=== PATIENT | female | born 1940 | race African-American/Black ===

== ENCOUNTER → 2016-08-06 | Outpatient (CLI) | payer MEDICARE ==
--- NOTE | 2016-08-06 12:06 | REPMRS ---
Patient History The patient states she has not had a clinical breast exam in over a year. Patient is postmenopausal. No known family history of cancer. Benign excisional biopsy of the left breast, 1960. Digital Woman Screen Mammo: August 06, 2016 - Exam #: [id number] Bilateral CC and MLO view(s) were taken. Technologist: Caitlyn Serrano Technologist Prior study comparison: April 13, 2015, digital woman screen mammo performed at [facility]. January 17, 2014, bilateral screening mammogram, performed at [facility]. November 23, 2012, digital bilateral screening mammo, performed at [facility]. FINDINGS: There are scattered fibroglandular densities. There has been no change in the appearance of the mammogram from the prior studies. There is a mild amount of scattered fibroglandular density which is fairly symmetric. There is no interval development of dominant mass, architectural distortion, or clustered microcalcification suggestive of malignancy. ASSESSMENT: BI-RADS/ACR category 1 mammogram. Negative. Recommendation Routine screening mammogram in 1 year (for women over age 40). This mammogram was interpreted with the aid of an FDA-approved computer-aided dectection system. Electronically Signed By: Boris Haro MD 08/06/16 [id number]
--- NOTE | 2016-08-08 11:06 | DEXA ---
AP SPINE L1 - L4 1.322 1.0 1.6 LT FEMUR TOTAL 0.996 -0.1 0.5 RT FEMUR TOTAL 0.993 -0.1 0.4 TOTAL BODY TOTAL OTHER DUAL FEMUR FRAX* ASSESSMENT Risk factors: None. 10 year probability of fracture Major osteoporotic fracture 11.0 % Hip fracture 2.0 % COMMENTS: Normal bone densitometry of the spine. Normal bone densitometry of the left hip. There is low bone density of the right hip. FOLLOW-UP: Recommendation for the next bone density exam: 2 years. DARIUS
== END ==
LOC: M WHC 10:27
PROVIDERS: ATTEND Nurse Practitioner Family
DX: Z13.820 Encounter for screening for osteoporosis (principal); Z12.31 Encounter for screening mammogram for malignant neoplasm of breast; M25.851 Other specified joint disorders, right hip; M81.0 Age-related osteoporosis without current pathological fracture
CPT/HCPCS: 77080; G0202

== ENCOUNTER → 2016-09-03 | Outpatient (REF) | payer MEDICARE ==
[2016-09-03 12:31] LABS: ALBUMIN 3.5 GM/DL (3.2-5.2); ALBUMIN/GLOBULIN RATIO 0.92 (1.00-1.93); ALKALINE PHOSPHATASE 59 U/L (45-117); ALT/SGPT 21 U/L (12-78); ANION GAP 8 MEQ/L (8-16); AST/SGOT 17 U/L (15-37); BILIRUBIN,TOTAL 0.3 MG/DL (0.2-1.0); BLOOD UREA NITROGEN 14 MG/DL (7-18); CALCIUM LEVEL 8.8 MG/DL (8.8-10.2); CARBON DIOXIDE LEVEL 30 MEQ/L (21-32); CHLORIDE LEVEL 98 MEQ/L (98-107); CREATININE FOR GFR 0.87 MG/DL (0.55-1.02); GLOMERULAR FILTRATION RATE > 60.0 (>39); GLUCOSE, FASTING 95 MG/DL (83-110); POTASSIUM SERUM 3.9 MEQ/L (3.5-5.1); SODIUM LEVEL 136 MEQ/L (136-145); TOTAL PROTEIN 7.3 GM/DL (6.4-8.2)
== END ==
LOC: M SFHCPLAZ 08:12
PROVIDERS: ATTEND Nurse Practitioner Family
DX: I10 Essential (primary) hypertension (principal); E78.2 Mixed hyperlipidemia; K21.9 Gastro-esophageal reflux disease without esophagitis; E55.9 Vitamin D deficiency, unspecified; Z86.73 Personal history of transient ischemic attack (TIA), and cerebral infarction without residual deficits

== ENCOUNTER → 2016-09-24 | Outpatient (REF) | payer MEDICARE ==
[2016-09-24 14:05] LABS: IMMUNOGLOBULIN A 78.4 MG/DL (70-400); IMMUNOGLOBULIN G 1530 MG/DL (681-1648); TOTAL PROTEIN 7.2 GM/DL (6.4-8.2)
[2016-09-24 15:09] LABS: IMMUNOGLOBULIN M 10.7 MG/DL (40-230)
[2016-09-25 12:43] LABS: ALBUMIN 4.08 GM/DL (3.29-5.55); ALBUMIN % 56.6 % (55.8-66.1); GAMMA GLOBULIN % 19.9 % (11.1-18.8)
[2016-09-27 00:07] LABS: FREE KAPPA LIGHT CHAINS SERUM 12.38 mg/L (3.30-19.40); FREE LAMBDA LIGHT CHAINS SERUM 11.07 mg/L (5.71-26.30); KAPPA/LAMBDA RATIO SERUM 1.12 (0.26-1.65)
== END ==
LOC: M LAB REF 12:54
PROVIDERS: ATTEND Internal Medicine Medical Oncology
DX: D47.2 Monoclonal gammopathy (principal)

== ENCOUNTER → 2016-10-08 | Outpatient (REF) | payer MEDICARE ==
[2016-10-08 13:35] LABS: PERCENT SATURATION 18.4 % (13.2-37.4)
== END ==
LOC: M LAB REF 12:35
PROVIDERS: ATTEND Internal Medicine Medical Oncology
DX: D47.2 Monoclonal gammopathy (principal); D64.9 Anemia, unspecified

== ENCOUNTER → 2017-04-15 | Outpatient (REF) | payer MEDICARE ==
[2017-04-15 14:04] LABS: IMMUNOGLOBULIN A 78.9 MG/DL (70-400); IMMUNOGLOBULIN G 1680 MG/DL (681-1648); TOTAL PROTEIN 7.8 GM/DL (6.4-8.2)
[2017-04-15 14:25] LABS: IMMUNOGLOBULIN M 14.3 MG/DL (40-230)
[2017-04-16 10:30] LABS: ALBUMIN 4.36 GM/DL (3.29-5.55); ALBUMIN % 55.9 % (55.8-66.1); GAMMA GLOBULIN % 19.7 % (11.1-18.8)
[2017-04-17 00:10] LABS: FREE KAPPA LIGHT CHAINS SERUM 11.2 mg/L (3.3-19.4); KAPPA/LAMBDA RATIO SERUM 1.12 (0.26-1.65)
== END ==
LOC: M LAB REF 12:07
PROVIDERS: ATTEND Internal Medicine Medical Oncology
DX: D47.2 Monoclonal gammopathy (principal)

== ENCOUNTER → 2017-05-13 | Outpatient (REF) | payer MEDICARE ==
[2017-05-13 12:13] LABS: ANION GAP 6 MEQ/L (8-16); BLOOD UREA NITROGEN 15 MG/DL (7-18); CALCIUM LEVEL 9.5 MG/DL (8.8-10.2); CARBON DIOXIDE LEVEL 35 MEQ/L (21-32); CHLORIDE LEVEL 96 MEQ/L (98-107); GLOMERULAR FILTRATION RATE > 60.0 (>39); GLUCOSE, FASTING 83 MG/DL (83-110); POTASSIUM SERUM 3.5 MEQ/L (3.5-5.1); SODIUM LEVEL 137 MEQ/L (136-145)
== END ==
LOC: M SFHCPLAZ 09:33
DX: E87.6 Hypokalemia (principal)
CPT/HCPCS: 80048

== ENCOUNTER → 2017-07-22 | Outpatient (REF) | payer MEDICARE ==
[2017-07-22 14:19] LABS: FERRITIN 60 NG/ML (8-252); IMMUNOGLOBULIN A 77.7 MG/DL (70-400); IMMUNOGLOBULIN G 1650 MG/DL (681-1648); IRON (FE) 61 UG/DL (50-170); PERCENT SATURATION 19.3 % (13.2-45.0); TOTAL IRON BINDING CAPACITY 316 UG/DL (250-450)
[2017-07-23 08:52] LABS: ALBUMIN 4.45 GM/DL (3.29-5.55); ALBUMIN % 55.6 % (55.8-66.1); ALPHA-1-GLOBULIN % 5.1 % (2.9-4.9); ALPHA-1-GLOBULINS 0.41 GM/DL (0.17-0.41); ALPHA-2-GLOBULINS 0.84 GM/DL (0.42-0.99); ALPHA-2-GLOBULINS % 10.5 % (7.1-11.8); BETA-1-GLOBULINS 0.41 GM/DL (0.28-0.60); BETA-1-GLOBULINS % 5.1 % (4.7-7.2); BETA-2-GLOBULINS 0.34 GM/DL (0.19-0.55); BETA-2-GLOBULINS % 4.2 % (3.2-6.5); GAMMA GLOBULIN % 19.5 % (11.1-18.8); GAMMA GLOBULINS 1.56 GM/DL (0.65-1.58)
[2017-07-24 00:06] LABS: FREE LAMBDA LIGHT CHAINS SERUM 9.5 mg/L (5.7-26.3); KAPPA/LAMBDA RATIO SERUM 0.63 (0.26-1.65)
== END ==
LOC: M LAB REF 13:24
DX: D47.2 Monoclonal gammopathy (principal)
CPT/HCPCS: 83550

== ENCOUNTER → 2017-10-21 | Outpatient (CLI) | payer MEDICARE | LOC: M WHC 08:46 | DX: Z12.31 Encounter for screening mammogram for malignant neoplasm of breast (principal); Z78.0 Asymptomatic menopausal state; Z92.89 Personal history of other medical treatment; I10 Essential (primary) hypertension | CPT/HCPCS: 80053 ==

== ENCOUNTER → 2017-10-21 | Outpatient (REF) | payer MEDICARE ==
[2017-10-21 11:56] LABS: ALBUMIN 3.7 GM/DL (3.2-5.2); ALKALINE PHOSPHATASE 65 U/L (45-117); ALT/SGPT 20 U/L (12-78); ANION GAP 11 MEQ/L (8-16); AST/SGOT 13 U/L (7-37); BILIRUBIN,TOTAL 0.5 MG/DL (0.2-1.0); BLOOD UREA NITROGEN 10 MG/DL (7-18); CALCIUM LEVEL 9.6 MG/DL (8.8-10.2); CARBON DIOXIDE LEVEL 31 MEQ/L (21-32); CHLORIDE LEVEL 96 MEQ/L (98-107); CREATININE FOR GFR 0.72 MG/DL (0.55-1.30); GLOMERULAR FILTRATION RATE > 60.0 (>39); GLUCOSE, FASTING 79 MG/DL (70-100); POTASSIUM SERUM 3.1 MEQ/L (3.5-5.1); SODIUM LEVEL 138 MEQ/L (136-145); TOTAL PROTEIN 7.8 GM/DL (6.4-8.2)
== END ==
LOC: M SFHCPLAZ 08:17
DX: I10 Essential (primary) hypertension (principal)

== ENCOUNTER → 2017-10-29 | Outpatient (REF) | payer MEDICARE ==
[2017-10-29 12:20] LABS: POTASSIUM SERUM 3.8 MEQ/L (3.5-5.1)
== END ==
LOC: M SFHCPLAZ 10:11
DX: E87.6 Hypokalemia (principal)
CPT/HCPCS: 84132

== ENCOUNTER → 2018-01-27 | Outpatient (REF) | payer MEDICARE ==
[2018-01-27 16:35] LABS: IMMUNOGLOBULIN G 1610 MG/DL (681-1648); IMMUNOGLOBULIN M 19 MG/DL (40-230); TOTAL PROTEIN 7.7 GM/DL (6.4-8.2)
[2018-01-28 11:22] LABS: ALBUMIN 4.31 GM/DL (3.29-5.55); ALPHA-1-GLOBULIN % 4.9 % (2.9-4.9); ALPHA-1-GLOBULINS 0.38 GM/DL (0.17-0.41); ALPHA-2-GLOBULINS 0.77 GM/DL (0.42-0.99); BETA-1-GLOBULINS 0.39 GM/DL (0.28-0.60); BETA-2-GLOBULINS 0.32 GM/DL (0.19-0.55); BETA-2-GLOBULINS % 4.1 % (3.2-6.5); GAMMA GLOBULINS 1.54 GM/DL (0.65-1.58)
[2018-01-29 00:07] LABS: FREE KAPPA LIGHT CHAINS SERUM 10.3 mg/L (3.3-19.4); KAPPA/LAMBDA RATIO SERUM 1.29 (0.26-1.65)
== END ==
LOC: M LAB REF 13:44
DX: D47.2 Monoclonal gammopathy (principal)
CPT/HCPCS: 84165

== ENCOUNTER → 2018-03-23 | Outpatient (CLI) | payer MEDICARE | LOC: M RAD 13:13 | DX: M25.552 Pain in left hip (principal) | CPT/HCPCS: 73502 ==

== ENCOUNTER → 2018-09-08 | Outpatient (REF) | payer MEDICARE ==
[~2018-09-08] MED LIST: HYDR25TAB PO; METO50TA7 PO; PANT-23 PO; PLAV1TAB2 PO; SIMV20TA2 PO
[2018-09-08 10:57] LABS: ALT/SGPT 17 U/L (12-78); BILIRUBIN,TOTAL 0.4 MG/DL (0.2-1.0); BLOOD UREA NITROGEN 11 MG/DL (7-18); CALCIUM LEVEL 9.6 MG/DL (8.8-10.2); CARBON DIOXIDE LEVEL 33 MEQ/L (21-32); CHLORIDE LEVEL 96 MEQ/L (98-107); CHOLESTEROL LEVEL 212 MG/DL (<200); CHOLESTEROL RISK RATIO 2.329 (<5); CREATININE FOR GFR 0.72 MG/DL (0.55-1.30); FREE T4 0.88 NG/DL (0.76-1.46); GLOMERULAR FILTRATION RATE > 60.0 (>32); GLUCOSE, FASTING 82 MG/DL (70-100); HDL CHOLESTEROL 91 MG/DL (>40); LDL CHOLESTEROL 101 MG/DL (<100); NON-HDL-C 121 MG/DL; POTASSIUM SERUM 3.6 MEQ/L (3.5-5.1); SODIUM LEVEL 134 MEQ/L (136-145); TOTAL PROTEIN 7.9 GM/DL (6.4-8.2); TRIGLYCERIDES LEVEL 99 MG/DL (<150)
[2018-09-08 10:58] LABS: TOTAL 25(OH) VITAMIN D 48.7 NG/ML (30.0-100.0)
== END ==
LOC: M SFHCPLAZ 08:18
PROVIDERS: ATTEND Nurse Practitioner Family
DX: I10 Essential (primary) hypertension (principal); E04.9 Nontoxic goiter, unspecified; E78.2 Mixed hyperlipidemia; E55.9 Vitamin D deficiency, unspecified

== ENCOUNTER → 2018-09-15 | Outpatient (REF) | payer MEDICARE ==
[2018-09-15 13:55] LABS: BLOOD UREA NITROGEN 13 MG/DL (7-18); CALCIUM LEVEL 9.2 MG/DL (8.8-10.2); CARBON DIOXIDE LEVEL 33 MEQ/L (21-32); CHLORIDE LEVEL 98 MEQ/L (98-107); GLOMERULAR FILTRATION RATE > 60.0 (>32); GLUCOSE, FASTING 73 MG/DL (70-100); POTASSIUM SERUM 3.5 MEQ/L (3.5-5.1); SODIUM LEVEL 135 MEQ/L (136-145)
== END ==
LOC: M SFHCPLAZ 11:10
PROVIDERS: ATTEND Family Medicine
DX: E87.1 Hypo-osmolality and hyponatremia (principal)
CPT/HCPCS: 36415; 80048; G0463

== ENCOUNTER 2019-04-05 10:56 | Emergency (ER) | payer MEDICARE ==
[~2019-04-05] VITALS: Ht 167.6 cm; Wt 82.5 kg
[~2019-04-05 10:56] MED LIST changes: -SIMV20TA2 PO; +SIMV20TA22 PO
[2019-04-05] MEDS ORDERED: K-TA10TA2 PO (11:23)
[2019-04-05] MEDS ORDERED: CLAR10CA3 PO (11:23)
[2019-04-05] MEDS ORDERED: CHOL100029 PO (11:23)
[2019-04-05] MEDS ORDERED: NS 1,000 ML IV SCH (12:16)
--- NOTE | 2019-04-05 12:34 | REP ---
Clinical: Altered mental status . Comparison: None . Findings: The ventricles, sulci, and cisterns are normal in position and appearance. Espitia-white differentiation is maintained. No acute intracranial hemorrhage, mass/mass effect, pathology or trauma/injury. No evidence for acute infarction. No extra-axial fluid collection. Calvarium is intact. Paranasal sinuses and mastoid air cells are clear. Impression: Normal noncontrast head CT. No evidence for acute intracranial pathology or trauma/injury. Electronically Signed by Saad Chandler MD 04/05/2019 12:26 P
--- NOTE | 2019-04-05 12:37 | REP ---
Clinical: Altered mental status . Comparison: None . Findings: The mediastinum and cardiac silhouette are stable and within normal limits for portable technique. The lung billingsley demonstrate chronic-appearing changes without acute consolidation, effusion, or pneumothorax. Skeletal structures are intact. Impression: Chronic-appearing changes. No focal consolidation or effusion. Electronically Signed by Saad Chandler MD 04/05/2019 12:29 P
[2019-04-05 13:07] LABS: BASO % 0.5 % (0.0-1.0); EOS # 0.1 10^3/uL (0.0-0.5); EOS % 1.3 % (0.0-3.0); HEMATOCRIT 39.8 % (36.0-47.0); HEMOGLOBIN 12.6 g/dl (12.0-15.5); LYMPH # 1.3 10^3/uL (1.5-5.0); LYMPH % 35.2 % (24.0-44.0); MEAN CORPUSCULAR HEMOGLOBIN 28.1 pg (27.0-33.0); MEAN CORPUSCULAR HGB CONC 31.7 g/dl (32.0-36.5); MEAN CORPUSCULAR VOLUME 88.6 fl (80.0-96.0); MONO # 0.3 10^3/uL (0.0-0.8); MONO % 7.9 % (0.0-5.0); NEUTROPHILS # 2.1 10^3/uL (1.5-8.5); NEUTROPHILS % 54.8 % (36.0-66.0); PLATELET COUNT, AUTOMATED 195 10^3/uL (150-450); RED BLOOD COUNT 4.49 10^6/uL (4.00-5.40); WHITE BLOOD COUNT 3.8 10^3/uL (4.0-10.0)
[2019-04-05 13:51] LABS: ACETAMINOPHEN LEVEL < 2.0 UG/ML (10.0-30.0); ALT/SGPT 23 U/L (12-78); BILIRUBIN,DIRECT < 0.1 MG/DL (0.0-0.2); BILIRUBIN,TOTAL 0.3 MG/DL (0.2-1.0); BLOOD UREA NITROGEN 9 MG/DL (7-18); CALCIUM LEVEL 9.1 MG/DL (8.8-10.2); CARBON DIOXIDE LEVEL 31 MEQ/L (21-32); CHLORIDE LEVEL 100 MEQ/L (98-107); CPK CREATINE PHOSPHOKINASE 101 U/L (26-192); CREATININE FOR GFR 0.78 MG/DL (0.55-1.30); GLOMERULAR FILTRATION RATE > 60.0 (>32); GLUCOSE, FASTING 82 MG/DL (70-100); MB/CK RELATIVE INDEX 0.99 (< OR =4); POTASSIUM SERUM 3.8 MEQ/L (3.5-5.1); SALICYLATE LEVEL < 1.7 MG/DL (5.0-30.0); SODIUM LEVEL 136 MEQ/L (136-145); TOTAL PROTEIN 8.6 GM/DL (6.4-8.2); TROPONIN I < 0.02 NG/ML (< 0.10)
[2019-04-05 14:35] VITALS: BP 134/73
--- NOTE | 2019-04-06 07:25 | ECGEPIP ---
[facility] - ED Test Date: 2019-04-05 Pat Name: ETHAN NIELSON Department: Room: - Gender: Female Jacket Preparer: juarez zamora : [id number] Requested By: LIZ STANFORD Order Number: [id number] Reading MD: Alba Nix Measurements Intervals [place] Rate: 78 P: 52 AL: 199 QRS: -23 QRSD: 110 T: 7 QT: 381 QTc: 436 Interpretive Statements SINUS RHYTHM MODERATE VOLTAGE CRITERIA FOR LVH, CONSIDER NORMAL VARIANT POSSIBLE SEPTAL MYOCARDIAL INFARCTION, OF INDETERMINATE AGE NSTTW abnormalities NO PRIOR Electronically Signed on 04-06-2019 7:25:13 EST by Alba Nix
== END 2019-04-05 14:50 | disposition home or self-care (01) ==
LOC: M ED 10:56
DX: R53.1 Weakness (principal); R53.83 Other fatigue; R53.81 Other malaise; I51.9 Heart disease, unspecified; I10 Essential (primary) hypertension; Z86.73 Personal history of transient ischemic attack (TIA), and cerebral infarction without residual deficits; Z79.899 Other long term (current) drug therapy; Z88.8 Allergy status to other drugs, medicaments and biological substances
CPT/HCPCS: 36415; 70450; 71045; 80048; 80076; 81001; 82550; 82553; 84443; 84484; 85025; 93005; 93041; 94760; 96360; 96361; 99284; G0480

== ENCOUNTER → 2019-05-01 | Outpatient (CLI) | payer MEDICARE ==
[~2019-05-01] MED LIST changes: +CHOL100029 PO; +CLAR10CA3 PO; +K-TA10TA2 PO
--- NOTE | 2019-05-01 09:29 | REP ---
Clinical: Acute stroke . Comparison: 04/05/2019 . Findings: The ventricles, sulci, and cisterns are normal in position and appearance. Espitia-white differentiation is maintained. Mild periventricular leukomalacia consistent with age-related changes again noted and essentially stable compared to 04/05/2019. No acute intracranial hemorrhage, mass/mass effect, pathology or trauma/injury. No evidence for acute infarction. No extra-axial fluid collection. Calvarium is intact. Paranasal sinuses and mastoid air cells are clear. Impression: Mild stable periventricular leukomalacia. No evidence for acute intracranial hemorrhage, edema, or mass/mass effect. Electronically Signed by Saad Chandler MD 05/01/2019 09:21 A
== END ==
LOC: M RAD 08:54
PROVIDERS: ATTEND Psychiatry & Neurology Neurology
DX: I63.9 Cerebral infarction, unspecified (principal); G93.89 Other specified disorders of brain

== ENCOUNTER → 2019-07-18 | Outpatient (CLI) | payer MEDICARE ==
[~2019-07-18] MED LIST changes: +LORA-674 PO; +VITAD1000T PO
[2019-07-18 13:53] LABS: BASO % 0.4 % (0.0-1.0); EOS # 0.1 10^3/uL (0.0-0.5); EOS % 1.1 % (0.0-3.0); HEMATOCRIT 36.3 % (36.0-47.0); HEMOGLOBIN 11.8 g/dl (12.0-15.5); LYMPH # 2.1 10^3/uL (1.5-5.0); LYMPH % 43.9 % (24.0-44.0); MEAN CORPUSCULAR HEMOGLOBIN 28.2 pg (27.0-33.0); MEAN CORPUSCULAR HGB CONC 32.5 g/dl (32.0-36.5); MEAN CORPUSCULAR VOLUME 86.6 fl (80.0-96.0); MONO # 0.4 10^3/uL (0.0-0.8); MONO % 7.8 % (0.0-5.0); NEUTROPHILS # 2.2 10^3/uL (1.5-8.5); NEUTROPHILS % 46.6 % (36.0-66.0); PLATELET COUNT, AUTOMATED 223 10^3/uL (150-450); RED BLOOD COUNT 4.19 10^6/uL (4.00-5.40); WHITE BLOOD COUNT 4.7 10^3/uL (4.0-10.0)
[2019-07-18 14:19] LABS: ALT/SGPT 20 U/L (12-78); BILIRUBIN,TOTAL 0.6 MG/DL (0.2-1.0); BLOOD UREA NITROGEN 9 MG/DL (7-18); CALCIUM LEVEL 9.5 MG/DL (8.8-10.2); CARBON DIOXIDE LEVEL 31 MEQ/L (21-32); CHLORIDE LEVEL 92 MEQ/L (98-107); GLOMERULAR FILTRATION RATE > 60.0 (>32); GLUCOSE, FASTING 86 MG/DL (70-100); POTASSIUM SERUM 3.4 MEQ/L (3.5-5.1); SODIUM LEVEL 128 MEQ/L (136-145); TOTAL PROTEIN 7.9 GM/DL (6.4-8.2)
--- NOTE | 2019-07-19 08:21 | REP ---
SKELETAL SURVEY: Assess for metastatic disease. COMPARISON: 07/28/2014 15 views of the axial and appendicular skeleton were obtained in the same fashion as the prior exam showing multilevel degenerative changes in the spine, sacroiliac joints, hips, knees, and shoulders, all status quo. There is no evidence of a lytic or blastic lesion involving any of the imaged axial or appendicular skeleton. IMPRESSION: Essentially unchanged to slightly progressed degenerative changes, as described above. Unreviewed
[2019-07-21 10:45] LABS: ALBUMIN % 57.7 % (55.8-66.1); ALPHA-1-GLOBULIN % 4.7 % (2.9-4.9)
[2019-07-21 10:46] LABS: ALBUMIN 4.56 GM/DL (3.29-5.55); ALPHA-1-GLOBULINS 0.37 GM/DL (0.17-0.41); ALPHA-2-GLOBULINS 0.77 GM/DL (0.42-0.99); ALPHA-2-GLOBULINS % 9.7 % (7.1-11.8); BETA-1-GLOBULINS % 5.1 % (4.7-7.2); BETA-2-GLOBULINS 0.31 GM/DL (0.19-0.55); BETA-2-GLOBULINS % 3.9 % (3.2-6.5); GAMMA GLOBULIN % 18.9 % (11.1-18.8); GAMMA GLOBULINS 1.49 GM/DL (0.65-1.58)
[2019-07-22 00:06] LABS: FREE KAPPA LIGHT CHAINS SERUM 10.8 mg/L (3.3-19.4); FREE LAMBDA LIGHT CHAINS SERUM 9.4 mg/L (5.7-26.3); KAPPA/LAMBDA RATIO SERUM 1.15 (0.26-1.65)
== END ==
LOC: M LAB 12:35
PROVIDERS: ATTEND Internal Medicine Hematology & Oncology
DX: D47.2 Monoclonal gammopathy (principal)

== ENCOUNTER → 2019-07-21 | Outpatient (REF) | payer MEDICARE ==
[2019-07-21 18:05] LABS: BLOOD UREA NITROGEN 12 MG/DL (7-18); CALCIUM LEVEL 9.1 MG/DL (8.8-10.2); CARBON DIOXIDE LEVEL 31 MEQ/L (21-32); CHLORIDE LEVEL 100 MEQ/L (98-107); CREATININE FOR GFR 0.76 MG/DL (0.55-1.30); FREE T4 0.82 NG/DL (0.76-1.46); GLOMERULAR FILTRATION RATE > 60.0 (>32); GLUCOSE, FASTING 87 MG/DL (70-100); MAGNESIUM LEVEL 2.3 MG/DL (1.8-2.4); POTASSIUM SERUM 4.1 MEQ/L (3.5-5.1); SODIUM LEVEL 136 MEQ/L (136-145); TOTAL 25(OH) VITAMIN D 46.5 NG/ML (30.0-100.0)
[2019-07-21 18:46] LABS: CREATININE, URINE 23.1 MG/DL; MALB URINE SIEMENS 16.6 MG/L; MAU/CREAT RATIO 71.8 MCG/MG (0.0-30.0)
== END ==
LOC: M SFHCPLAZ 15:49
PROVIDERS: ATTEND Nurse Practitioner Family
DX: E78.2 Mixed hyperlipidemia (principal)

== ENCOUNTER → 2020-01-06 | Outpatient (CLI) | payer MEDICARE ==
[~2020-01-06] MED LIST changes: +D31000TA2 PO; -VITAD1000T PO
[2020-01-06 17:31] LABS: BASO % 0.4 % (0.0-1.0); EOS # 0.1 10^3/uL (0.0-0.5); EOS % 1.2 % (0.0-3.0); HEMATOCRIT 38.3 % (36.0-47.0); HEMOGLOBIN 12.4 g/dl (12.0-15.5); LYMPH # 1.7 10^3/uL (1.5-5.0); LYMPH % 33.5 % (24.0-44.0); MEAN CORPUSCULAR HEMOGLOBIN 28.7 pg (27.0-33.0); MEAN CORPUSCULAR HGB CONC 32.4 g/dl (32.0-36.5); MEAN CORPUSCULAR VOLUME 88.7 fl (80.0-96.0); MONO # 0.4 10^3/uL (0.0-0.8); MONO % 7.9 % (0.0-5.0); NEUTROPHILS # 2.8 10^3/uL (1.5-8.5); NEUTROPHILS % 56.8 % (36.0-66.0); PLATELET COUNT, AUTOMATED 217 10^3/uL (150-450); RED BLOOD COUNT 4.32 10^6/uL (4.00-5.40)
[2020-01-06 18:31] LABS: ALBUMIN 4.3 GM/DL (3.2-5.2); ALT/SGPT 30 U/L (12-78); BILIRUBIN,TOTAL 0.4 MG/DL (0.2-1.0); BLOOD UREA NITROGEN 11 MG/DL (7-18); CALCIUM LEVEL 9.7 MG/DL (8.8-10.2); CARBON DIOXIDE LEVEL 29 MEQ/L (21-32); CHLORIDE LEVEL 96 MEQ/L (98-107); CREATININE FOR GFR 0.83 MG/DL (0.55-1.30); GLOMERULAR FILTRATION RATE > 60.0 (>32); GLUCOSE, FASTING 75 MG/DL (70-100); IMMUNOGLOBULIN A 89.8 MG/DL (70-400); IMMUNOGLOBULIN G 1800 MG/DL (681-1648); IMMUNOGLOBULIN M 14.9 MG/DL (40-230); POTASSIUM SERUM 3.3 MEQ/L (3.5-5.1); SODIUM LEVEL 134 MEQ/L (136-145); TOTAL PROTEIN 8.7 GM/DL (6.4-8.2)
[2020-01-07 12:32] LABS: ALBUMIN % 57.5 % (55.8-66.1); ALPHA-1-GLOBULIN % 4.7 % (2.9-4.9); ALPHA-1-GLOBULINS 0.41 GM/DL (0.17-0.41); ALPHA-2-GLOBULINS 0.84 GM/DL (0.42-0.99); ALPHA-2-GLOBULINS % 9.7 % (7.1-11.8); BETA-1-GLOBULINS 0.44 GM/DL (0.28-0.60); BETA-2-GLOBULINS 0.35 GM/DL (0.19-0.55); GAMMA GLOBULIN % 19.1 % (11.1-18.8); GAMMA GLOBULINS 1.66 GM/DL (0.65-1.58)
[2020-01-08 18:09] LABS: BETA 2 MICROGLOBULIN 1.6 mg/L (0.6-2.4); FREE KAPPA LIGHT CHAINS SERUM 12.2 mg/L (3.3-19.4); FREE LAMBDA LIGHT CHAINS SERUM 10.6 mg/L (5.7-26.3); KAPPA/LAMBDA RATIO SERUM 1.15 (0.26-1.65)
== END ==
LOC: M LAB 15:54
PROVIDERS: ATTEND Internal Medicine Hematology & Oncology
DX: D47.2 Monoclonal gammopathy (principal)

== ENCOUNTER → 2020-01-21 | Outpatient (CLI) | payer MEDICARE ==
[2020-01-21 12:02] LABS: ALBUMIN 4.1 GM/DL (3.2-5.2); ALT/SGPT 23 U/L (12-78); BILIRUBIN,TOTAL 0.4 MG/DL (0.2-1.0); BLOOD UREA NITROGEN 11 MG/DL (7-18); CALCIUM LEVEL 9.5 MG/DL (8.8-10.2); CARBON DIOXIDE LEVEL 31 MEQ/L (21-32); CHLORIDE LEVEL 98 MEQ/L (98-107); CHOLESTEROL LEVEL 204 MG/DL (<200); CREATININE FOR GFR 0.77 MG/DL (0.55-1.30); GLOMERULAR FILTRATION RATE > 60.0 (>32); GLUCOSE, FASTING 70 MG/DL (70-100); HDL CHOLESTEROL 99 MG/DL (>40); LDL CHOLESTEROL 86 MG/DL (<100); NON-HDL-C 105 MG/DL; POTASSIUM SERUM 3.7 MEQ/L (3.5-5.1); SODIUM LEVEL 137 MEQ/L (136-145); TRIGLYCERIDES LEVEL 95 MG/DL (<150)
[2020-01-21 16:39] LABS: TOTAL 25(OH) VITAMIN D 43.6 NG/ML (30.0-100.0)
== END ==
LOC: M PLALAB 08:46
PROVIDERS: ATTEND Nurse Practitioner Family
DX: I10 Essential (primary) hypertension (principal); E78.2 Mixed hyperlipidemia; E55.9 Vitamin D deficiency, unspecified

== ENCOUNTER → 2020-06-27 | Outpatient (CLI) | payer MEDICARE ==
[~2020-06-27] MED LIST changes: +HYDR-3490 PO; -HYDR25TAB PO
[2020-06-27 12:18] LABS: BASO % 0.5 % (0.0-1.0); EOS # 0.1 10^3/uL (0.0-0.5); EOS % 1.5 % (0.0-3.0); HEMATOCRIT 35.2 % (36.0-47.0); HEMOGLOBIN 11.3 g/dl (12.0-15.5); LYMPH # 1.7 10^3/uL (1.5-5.0); LYMPH % 41.6 % (24.0-44.0); MEAN CORPUSCULAR HEMOGLOBIN 28.2 pg (27.0-33.0); MEAN CORPUSCULAR HGB CONC 32.1 g/dl (32.0-36.5); MEAN CORPUSCULAR VOLUME 87.8 fl (80.0-96.0); MONO # 0.4 10^3/uL (0.0-0.8); MONO % 10.8 % (2.0-8.0); NEUTROPHILS # 1.8 10^3/uL (1.5-8.5); NEUTROPHILS % 45.4 % (36.0-66.0); PLATELET COUNT, AUTOMATED 220 10^3/uL (150-450); RED BLOOD COUNT 4.01 10^6/uL (4.00-5.40); WHITE BLOOD COUNT 4.1 10^3/uL (4.0-10.0)
[2020-06-27 12:47] LABS: ALBUMIN 4.2 GM/DL (3.2-5.2); ALT/SGPT 22 U/L (12-78); BILIRUBIN,TOTAL 0.3 MG/DL (0.2-1.0); BLOOD UREA NITROGEN 11 MG/DL (7-18); CALCIUM LEVEL 9.6 MG/DL (8.8-10.2); CARBON DIOXIDE LEVEL 31 MEQ/L (21-32); CHLORIDE LEVEL 93 MEQ/L (98-107); CREATININE FOR GFR 0.75 MG/DL (0.55-1.30); GLOMERULAR FILTRATION RATE > 60.0 (>32); GLUCOSE, FASTING 74 MG/DL (70-100); POTASSIUM SERUM 3.6 MEQ/L (3.5-5.1); SODIUM LEVEL 130 MEQ/L (136-145)
[2020-06-28 10:08] LABS: ALBUMIN % 57.5 % (55.8-66.1); ALPHA-1-GLOBULIN % 4.9 % (2.9-4.9); ALPHA-1-GLOBULINS 0.39 GM/DL (0.17-0.41); ALPHA-2-GLOBULINS 0.81 GM/DL (0.42-0.99); ALPHA-2-GLOBULINS % 10.1 % (7.1-11.8); BETA-1-GLOBULINS 0.38 GM/DL (0.28-0.60); BETA-1-GLOBULINS % 4.8 % (4.7-7.2); BETA-2-GLOBULINS 0.33 GM/DL (0.19-0.55); BETA-2-GLOBULINS % 4.1 % (3.2-6.5); GAMMA GLOBULIN % 18.6 % (11.1-18.8); GAMMA GLOBULINS 1.49 GM/DL (0.65-1.58)
[2020-06-28 19:07] LABS: FREE KAPPA LIGHT CHAINS SERUM 13.6 mg/L (3.3-19.4); FREE LAMBDA LIGHT CHAINS SERUM 11.8 mg/L (5.7-26.3); KAPPA/LAMBDA RATIO SERUM 1.15 (0.26-1.65)
== END ==
LOC: M LAB 11:12
PROVIDERS: ATTEND Internal Medicine Medical Oncology
DX: D47.2 Monoclonal gammopathy (principal)